=== PATIENT | male | born 1985 | race Hispanic/Latino ===

== ENCOUNTER 2017-06-13 20:07 | Observation (INO) | payer OTHER ==
[~2017-06-13] VITALS: Ht 170.2 cm; Wt 87.2 kg
[~2017-06-13 20:07] MED LIST: TORADOL PO
--- NOTE | 2017-06-13 20:20 | NUR ---
PT AMBULATED TO ROOM
[2017-06-13 20:54] LABS: HEMATOCRIT 44.2 % (39.0-50.0); HEMOGLOBIN 15.3 g/dl (14.0-18.0); IMMATURE GRANULOCYTES 0.4 % (0.0-1.0); MEAN CELL VOLUME 89.1 fL CALC (80.0-100.0); MEAN CORPUSCULAR HGB 30.8 pG CALC (26.0-32.0); MEAN CORPUSCULAR HGB CONC 34.6 g/L CALC (32.0-36.0); NEUT# 16.9 thou/uL (1.82-7.42); RED BLOOD COUNT 4.96 mill/uL (4.70-6.10); RED CELL DISTRI WIDTH 11.9 % (11.5-15.5)
[2017-06-13 21:09] LABS: ALBUMIN 5.2 g/dL (3.2-5.0); ALKALINE PHOSPHATASE 81 u/l (38-126); ANION GAP 19 (6-22 (CALC)); BUN 12 mg/dL (9-20); BUN/CREATININE RATIO 13 (12-20 (CALC)); CALCIUM 10.6 mg/dL (8.4-10.2); CARBON DIOXIDE 25 mmol/l (22-30); CHLORIDE 101 mmol/l (95-108); CREATININE 0.9 mg/dL (0.7-1.3); ETHYL ALCOHOL 0 mg/dl (0-30); GFR > 60 ML/MIN (>=60 (CALC)); GFR FOR AFR.AMER. > 60 ML/MIN (>=60 (CALC)); GLUCOSE 146 mg/dL (75-110); LIPASE 67 u/l (23-300); POTASSIUM 4.1 mmol/l (3.5-5.1); SGOT/AST 35 u/l (17-59); SGPT/ALT 79 u/l (21-72); SODIUM 140 mmol/l (137-146); TOTAL PROTEIN 8.1 g/dL (6.3-8.2)
[2017-06-13 21:11] LABS: BARBITURATES NEGATIVE (NEGATIVE); COCAINE NEGATIVE (NEGATIVE); METHADONE NEGATIVE (NEGATIVE); OXCYCODONE NEGATIVE (NEGATIVE); TETRAHYDROCANNABIONOL NEGATIVE (NEGATIVE); TRICYLIC ANTIDEPRESSANTS NEGATIVE (NEGATIVE)
--- NOTE | 2017-06-13 22:25 | NUR ---
PT DRANK PO CONTRAST
--- NOTE | 2017-06-13 22:50 | NUR ---
PT DRANK #2 CUP PO CONTRAST.
--- NOTE | 2017-06-13 23:20 | NUR ---
PT DRANK #3 PO CONTRAST
[2017-06-14] VITALS (8 sets, daily range): BP systolic 109–138; BP diastolic 66–91
--- NOTE | 2017-06-14 00:09 | NUR ---
[facility] AT BEDSIDE.
--- NOTE | 2017-06-14 00:12 | NUR ---
PT ENROUTE TO [facility] WITH [facility].
--- NOTE | 2017-06-14 03:03 | NUR ---
PT RETURNED [facility].
--- NOTE | 2017-06-14 03:08 | NUR ---
DR NOLASCO AT BEDSIDE.
--- NOTE | 2017-06-14 03:11 | NUR ---
PT C/O INCREASING ABD PAIN REQUESTED PAIN MED, ERP INFORMED.
--- NOTE | 2017-06-14 04:00 | NUR ---
PATIENT ADMITTED FROM ER VIA STRETCHER WITH ER STAFF IN ATTENDANCE. PATIENT ASSISTED FROM STRETCHER TO STANDING SCALE AND THEN TO BED-SLIGHTLY UNSTEADY GAIT AFTER PAIN MEDS IN ER. PATIENT IS BEING ADMITTED FOR POSS APPY-ALGERIAN SPEAKING ONLY. AT BEDSIDE AND ABLE TO TRANSLATE. DENIES ANY PMH, DENIES ANY PSH, DENIES ANY ALLERGIES. PATIENT NPO AT THIS TIME. IV SITE TO RIGHT AC WITH NS PATENT AND INFUSING AT 125CC/HR-SITE APPEARS HEALTHY AT THIS TIME. PATIENT STATES THAT PAIN IS 2 AT THIS TIME AFTER PAIN MEDSIN THE ER. ORIENTED TO ROOM AND SURROUNDINGS. INSTRUCTED ON USE OF NURSE CALL LIGHT SYSTEM AND TV REMOTE. SAFETY PRECAUTIONS REVIEWED WITH PATIENT AND . CALL LIGHT IN REACH. WILL CONT TO MONITOR.
--- NOTE | 2017-06-14 04:00 | NUR ---
PT RELATED PAIN IMPROVED AFTER PAIN MED.
--- NOTE | 2017-06-14 04:10 | NUR ---
REPORT CALLED TO [facility]
--- NOTE | 2017-06-14 04:15 | NUR ---
PT TO RM [id number] WITH RN.
--- NOTE | 2017-06-14 06:40 | NUR ---
DR. RODRIGUEZ CALLED FOR FURTHER ORDERS-ORDERS RECIEVED. PATIEMT RESTING IN BED WITH NO COMPLAINTS AT THIS TIME. CALL LIGHT IN REACH. WILL CONT TO MONITOR.
--- NOTE | 2017-06-14 07:55 | NUR ---
PT.IN BED SLEEPING W/FAMILY AT BEDSIDE SLEEPING ON ROLL-AWAY. PT.AWOKE TO MY ENTERING ROOM. V/S ASSESSED AND IV ANTIBIOTICS ADMINISTERED. DENIES ANY OTHER NEEDS AT THIS TIME. CALL LIGHT IS W/IN REACH
[2017-06-14 09:20] LABS: HEMATOCRIT 40.8 % (39.0-50.0); HEMOGLOBIN 13.7 g/dl (14.0-18.0); IMMATURE GRANULOCYTES 0.2 % (0.0-1.0); MEAN CELL VOLUME 90.7 fL CALC (80.0-100.0); MEAN CORPUSCULAR HGB 30.4 pG CALC (26.0-32.0); MEAN CORPUSCULAR HGB CONC 33.6 g/L CALC (32.0-36.0); NEUT# 9.45 thou/uL (1.82-7.42); RED BLOOD COUNT 4.5 mill/uL (4.70-6.10)
--- NOTE | 2017-06-14 11:00 | NUR ---
PT.OFF UNIT FLOOR FOR LAPAROSCOPIC APPENDECTOMY IN OR.
[2017-06-14] MEDS ORDERED: PERCOCET1 TA2 PO (11:54)
--- NOTE | 2017-06-14 14:33 | NUR ---
PT.V/S ARE GOOD, PT.TOLERATED CLEAR LIQUIDS WELL, URINATED 300CC CLEAR YELLOW URINE. WILL PROGRESS DIET TO FULL LIQUID PER IRON VALLECILLO
--- NOTE | 2017-06-14 15:30 | NUR ---
FAMILY MEMBER ASKED ON HER WAY OUT IF SHE COULD BRING HIM FOOD. I EXPLAINED TO HER NO, THAT HE WAS ON A FULL LIQUID DIET. UPON ENTERING ROOM ONE OF THE [employer] REPORTED THAT PT.WAS EATING TACO'S THAT FAMILY HAD BROUGHT IN. PT.HAD BEEN EDUCATED NOT TO EAT MORE THAN FULL LIQUIDS. SO FAR, PT.IS TOLERATING.
--- NOTE | 2017-06-14 16:27 | NUR ---
PT.DISHCARGED OFF UNIT FLOOR VIA WC ACCOMPANIED BY STAFF AND FAMILY IN GOOD CONDITION.
== END 2017-06-14 16:21 | disposition home or self-care (01) | DRG 343 ==
LOC: ED 20:07 → ED-I 06-14 02:20 → ED 06-14 03:10 → MS2 06-14 03:11
PROVIDERS: Emergency Medicine; Nurse Practitioner Family; ADMIT Internal Medicine; ATTEND Internal Medicine
PROC: 0DTJ4ZZ Resection of Appendix, Percutaneous Endoscopic Approach (ICD-10-PCS; principal; 2017-06-14)
DX: K35.80 Unspecified acute appendicitis (principal); F10.10 Alcohol abuse, uncomplicated; Z87.891 Personal history of nicotine dependence
CPT/HCPCS: G0378; J2710; S0164

== ENCOUNTER 2018-01-23 16:46 | Emergency (ER) | payer OTHER ==
[~2018-01-23] VITALS: Ht 170.2 cm; Wt 80.0 kg
[~2018-01-23 16:46] MED LIST changes: +PERCOCET1 TA2 PO
[2018-01-23] MEDS ORDERED: AMOXICILLIN500 M2 PO (17:03)
[2018-01-23 17:08] VITALS: BP 122/77
== END 2018-01-23 17:09 | disposition home or self-care (01) | DRG 153 ==
LOC: ED 16:46
DX: J02.0 Streptococcal pharyngitis (principal)

== ENCOUNTER 2021-01-27 16:01 | Emergency (ER) | payer OTHER ==
[~2021-01-27] VITALS: Ht 170.2 cm; Wt 83.6 kg
[~2021-01-27 16:01] MED LIST changes: +AMOXICILLIN500 M2 PO
[2021-01-27 16:46] LABS: IMMATURE GRANULOCYTES 0.2 % (0.0-5.0); MEAN CORPUSCULAR HGB 30.1 pG CALC (26.0-32.0); MEAN CORPUSCULAR HGB CONC 33.1 g/dL CAL (32.0-36.0); NEUT# 2.64 thou/uL (1.82-7.42); RED BLOOD COUNT 5.25 mill/uL (4.70-6.10); RED CELL DISTRI WIDTH 11.9 % (11.5-15.5)
[2021-01-27 16:48] LABS: HEMATOCRIT 47.8 % (39.0-50.0); HEMOGLOBIN 15.8 g/dl (14.0-18.0)
[2021-01-27 16:54] LABS: ALBUMIN 4.8 g/dL (3.2-5.0); ALKALINE PHOSPHATASE 64 u/l (38-126); AMYLASE 86 u/l (30-110); ANION GAP 17 (6-22 (CALC)); BUN 12 mg/dL (9-20); BUN/CREATININE RATIO 13 (12-20 (CALC)); CARBON DIOXIDE 27 mmol/l (22-30); CHLORIDE 99 mmol/l (95-108); CREATININE 0.9 mg/dL (0.7-1.3); ETHYL ALCOHOL 36 mg/dl (0-30); GFR > 60 ML/MIN (>=60 (CALC)); GFR FOR AFR.AMER. > 60 ML/MIN (>=60 (CALC)); LIPASE 124 u/l (23-300); POTASSIUM 3.5 mmol/l (3.5-5.1); SODIUM 139 mmol/l (137-146); TOTAL PROTEIN 8.1 g/dL (6.3-8.2)
[2021-01-27 16:56] LABS: BILIRUBIN, TOTAL 0.5 mg/dL (0.0-1.4); SGOT/AST 66 u/l (17-59)
[2021-01-27 18:09] LABS: URINE BILIRUBIN - DIPSTICK NEGATIVE (NEGATIVE); URINE BLOOD DIPSTICK NEGATIVE (NEGATIVE); URINE COLOR YELLOW; URINE GLUCOSE - DIPSTICK NEGATIVE (NEGATIVE); URINE KETONE TRACE mg/dL (NEGATIVE); URINE LEUK ESTERASE NEGATIVE (NEGATIVE); URINE PROTEIN - DIPSTICK 100 mg/dL (NEG-TRACE); URINE SPECIFIC GRAVITY >=1.030; URINE UROBILINOGEN - DIPSTICK 0.2 E.U./dL (0.2)
[2021-01-27] MEDS ORDERED: ZOFRAN4 MG/TAB PO (18:14)
[2021-01-27] MEDS ORDERED: PROTONIX40 MG PO (18:14)
[2021-01-27 18:17] LABS: URINE NITRITE - DIPSTICK NEGATIVE (Negative)
[2021-01-27 18:59] VITALS: BP 149/97
== END 2021-01-27 19:03 | disposition home or self-care (01) | DRG 179 ==
LOC: ED 16:01
DX: U07.1 COVID-19 (principal); K29.20 Alcoholic gastritis without bleeding
CPT/HCPCS: S0164

== ENCOUNTER 2021-02-01 16:55 | Emergency (ER) | payer OTHER ==
[~2021-02-01] VITALS: Ht 170.2 cm; Wt 84.1 kg
[~2021-02-01 16:55] MED LIST changes: +PROTONIX40 MG PO; +ZOFRAN4 MG/TAB PO
[2021-02-01 18:57] LABS: HEMATOCRIT 49.4 % (39.0-50.0); HEMOGLOBIN 16.2 g/dl (14.0-18.0); IMMATURE GRANULOCYTES 0.1 % (0.0-5.0); MEAN CELL VOLUME 91.1 fL CALC (80.0-100.0); MEAN CORPUSCULAR HGB 29.9 pG CALC (26.0-32.0); MEAN CORPUSCULAR HGB CONC 32.8 g/dL CAL (32.0-36.0); NEUT# 5.03 thou/uL (1.82-7.42); RED BLOOD COUNT 5.42 mill/uL (4.70-6.10); RED CELL DISTRI WIDTH 11.7 % (11.5-15.5)
[2021-02-01 19:14] LABS: ALBUMIN 4.2 g/dL (3.2-5.0); ALKALINE PHOSPHATASE 62 u/l (38-126); ANION GAP 13 (6-22 (CALC)); BILIRUBIN, TOTAL 0.6 mg/dL (0.0-1.4); BUN 12 mg/dL (9-20); BUN/CREATININE RATIO 14 (12-20 (CALC)); CARBON DIOXIDE 28 mmol/l (22-30); CHLORIDE 101 mmol/l (95-108); CREATININE 0.9 mg/dL (0.7-1.3); D-DIMER 0.46 mg/L (0.19-0.60); GFR > 60 ML/MIN (>=60 (CALC)); GFR FOR AFR.AMER. > 60 ML/MIN (>=60 (CALC)); POTASSIUM 3.6 mmol/l (3.5-5.1); SGOT/AST 46 u/l (17-59); SODIUM 138 mmol/l (137-146); TOTAL PROTEIN 7.6 g/dL (6.3-8.2)
[2021-02-01 19:16] LABS: INTERNATIONAL NORMALIZED RATIO 1.1 RATIO (0.7-1.3); PROTHROMBIN TIME 11.1 SECONDS (9.0-12.5)
[2021-02-01 19:26] LABS: MYOGLOBIN 31 ng/mL (0 - 121)
[2021-02-01 22:25] VITALS: BP 120/84
== END 2021-02-01 22:26 | disposition home or self-care (01) | DRG 179 ==
LOC: ED 16:55
DX: U07.1 COVID-19 (principal)